=== PATIENT | male | born 1985 | race Caucasian/White ===

== ENCOUNTER 2020-06-25 13:12 | Emergency (ER) | payer OTHER, SELFPAY ==
--- NOTE | 2020-06-25 13:20 | XR_ITS ---
WS: [id number] Right femur and thigh, 4 views, 06/25/2020 Clinical Data: fb in knee Comparison: None. Findings: No fractures or dislocations are seen. The soft tissues are normal. The visualized knee shows no abno rmalities. The right hip is unremarkable. There is a small metal fragment in the anterior medial subcutaneous ti ssue adjacent to the patella. XR/XR femur RT min 2V* [id number] Impression: 1. Negative for fracture. 2. Small fragment in medial anterior subcutaneous tissue at the level of the ri ght patella.
--- NOTE | 2020-06-25 13:20 | XR_ITS ---
WS: [id number] Right knee, 3 views, 06/25/2020 Clinical Data: metal in knee Comparison: None. Findings: No fractures or dislocations are seen. The joint spaces are normal. The patella is intact. The soft t issues show no swelling.There is a metal fragment in the medial anterior subcutaneous tissue at the l evel of the right patella. XR/XR knee RT 3V* [id number] Impression: 1. Negative for fracture. 2. Small metal fragment in the anterior medial subcutaneous tissue at the level of the right patella.
[2020-06-25 13:31] VITALS: BP 117/78; PULSE 76; RESP 18; TEMP 36.8; O2SAT 99; BMI 25.8
[2020-06-25 13:37] VITALS: BP 117/78; PULSE 79; RESP 16; O2SAT 99
[2020-06-25] MEDS: tetanus-dipt-pertussis 0.5 mL SDV IM (14:12)
--- NOTE | 2020-06-25 14:16 | ED_ITS ---
HPI - Extremity Problem General: Chief complaint: Extremity Injury, Lower Stated complaint: POSSIBLE METAL IN R LEG Time Seen by Provider: 06/25/20 13:36 Source: patient Mode of arrival: ambulatory Limitations: no limitations History of Present Illness: HPI Narrative: 34-year-old male patient presents to the emergency department with foreign body to the right lower thigh. He r eports was working on a you joint when he had a piece of metal penetrating his right lower thigh. He is reporting knee pain upon exam. He reports a pricking sensation to the wound, reports last tetanus shot was years ago. MD Complaint: extremity pain Onset (ago): hour(s) (1-2) Pain Consistency: intermittent Location: right and lower extremity Radiation: none Relieving factors: nothing Associated symptoms: Reports no associated symptoms; Deny chest pain, fever(s) or rash Review of Systems General: Reports: 10 or more systems reviewed and unremarkable except in HPI and below Const: Denies: fever(s), chills or diaphoresis Eyes: Denies: blurry vision or eye redness ENMT: Denies: throat pain, dental pain or disequilibrium Card: Denies: chest pain, palpitations or irregular heart rhythm Resp: Denies: dyspnea, productive cough, non-productive cough or wheezing GI: Denies: abdominal pain, nausea or vomiting : Denies: dysuria Musc: Reports: joint pain; Denies: neck pain or back pain Skin/Breast: Reports: skin tenderness and skin swelling; Denies: rash or pruritus Neuro: Denies: headache(s), weakness in extremities or behavioral changes Jose/Lymph: Denies: easy bruising [facility] ED PFSH: Medical History (Updated 06/25/20 @ 15:41 by Monique Pulliam [facility]) Healthy adult Physical Exam Const: COMMON NORMALS: no acute distress, patient oriented x3, healthy appearing and alert GENERAL APPEARANCE: cooperative, comfortable and well hydrated HENMT: COMMON NORMALS: normocephalic, Normal external nose present and moist oral mucous membranes HEAD & SCALP: normocephalic NOSE: Normal external nose present Eye: COMMON NORMALS: Equal, round and reactive pupils present and EOMs intact bilaterally GENERAL EYE: appearance normal, both eyes and all related structures PUPIL: Yes Equal, round and reactive pupils present Neck/C-Spine: COMMON NORMALS: full ROM and no lymphadenopathy GENERAL: Yes normal visual inspection and Yes trachea midline CERVICAL SPINE: Yes cervical ROM normal Lymph: LYMPHATIC: no lymphadenopathy noted Chest: COMMONS NORMALS: normal inspection of the chest Resp: COMMON NORMALS: normal respiratory effort and clear to auscultation bilaterally AUSCULTATION: clear to auscultation bilaterally Cardio: COMMON NORMALS: regular rhythm, S1 normal heart sound present and S2 normal heart sound present RHYTHM: regular rhythm HEART SOUNDS: S1 normal heart sound present and S2 normal heart sound present GI: COMMON NORMALS: Soft to palpation and non-tender INSPECTION: Yes normal to inspection PALPATION: Yes Soft to palpation : COMMON NORMALS: Yes no CVA tenderness BLADDER/KIDNEY EXAM: Yes no CVA tenderness Back/Pelvis: COMMON NORMALS: no CVA tenderness and thoracic and lumbar spine normal to inspection Extremity: COMMON NORMALS: normal to inspection, full ROM, capillary refill normal, no clubbing, cyanosis or edema and no pedal edema GENERAL: Yes normal exam except as noted OTHER: normal rt knee exam Neuro: COMMON NORMALS: patient oriented x3 and no focal motor deficits SENSORIUM/ORIENTATION: Yes alert Psych: COMMON NORMALS: mental status grossly normal, Normal thought process present and cooperative ACTIVITY/MOTOR BEHAVIOR: Yes appropriate eye contact THOUGHT PROCESS: Normal thought process present Skin: COMMON NORMALS: no rashes or lesions noted, turgor normal, no petechiae and no mottling GENERAL SKIN EXAM: no rashes or lesions noted, elasticity normal and turgor normal TRAUMA: puncture (rt medial lower thigh) Procedures Foreign Body Removal Time Out Performed: yes Site: right and lower extremity Description of foreign body: other (metal fragment) Technique: manual removal, removal with forceps and incision made to facilitate removal Confirmed by:: palpation Complications: none Post-procedure exam: awake, alert, normal BP, normal HR and normal O2 sat Neurovascular: normal distal pulse, normal capillary fill, distal light touch sensation intact, no change from pre-procedure and other (FB retrieval not succe ssful, 3 sutures with 2-0 silk placed patient will be referred to surgical services for retrieval of foreign body) Course Vital Signs: Vital signs: Vital Signs Temperature 98.2 F 06/25/20 13:31 Pulse Rate 66 06/25/20 15:53 Respiratory Rate 16 06/25/20 15:53 Blood Pressure 109/68 06/25/20 15:53 Pulse Oximetry 97 06/25/20 15:53 MDM - Extremity (Nontraumatic) MDM Narrative: Medical decision making narrative: 34-year-old male presents to the emergency department with foreign body to the right lower thigh. Three-view x-ray revealed small metal fragment in the anterior medial subcu tissue at the level of the right patella. Incision to open puncture wound site for attempted retrieval of the foreign body, procedure was unsuccessful. Patient was referred to surgical services for foreign body retrieval. Patient was also advised not to use the affected extremity until follow-up with [facility] on Monday. financial services associate consult to assist with surgical follow-up. Placed on Keflex for prophylactic antibiotic therapy. Imaging Data^: Xray Ortho: Radiologist's impression: [employer] [address] [place] [id number] XRay Report Signed Patient: Benito Reyes Unit #: [id number] : 1985 Age/Sex: 34 / M ADM Date: 06/25/20 Loc: ER Room/Bed: Attending Dr: Ordering Provider/Ordering MD: Monique Pulliam Date of Service: 06/25/20 Procedure(s): XR knee RT 3V* [id number] Accession Number(s): [id number] Report Number: [id number] WS: [id number] Right knee, 3 views, 06/25/2020 Clinical Data: metal in knee Comparison: None. Findings: No fractures or dislocations are seen. The joint spaces are normal. The patella is intact. The soft tissues show no swelling.There is a metal fragment in the medial anterior subcutaneous tissue at the level of the right patella. XR/XR knee RT 3V* [id number] Impression: 1. Negative for fracture. 2. Small metal fragment in the anterior medial subcutaneous tissue at the level of the right patella. Dictated By: Dee Jovel MD Signed By: Dee Jovel MD Signed Date/Time: 06/25/201415 DD/ 14 Discharge Plan Discharge Patient Disposition: Home Clinical Impression: Acute foreign body of right thigh Qualifiers: Encounter type: initial encounter Qualified Code(s): S70.351A - Superficial foreign body, right thigh, initial encounter Condition: Stable Prescriptions: New cephalexin 500 mg capsule 500 mg PO Q6H 7 Days Qty: 28 RF: 0 Discharge Orders: Discharge ED (Routine); Ordered 06/25/20 Ordered By: Monique Pulliam Discharge Diet: Usual diet Discharge Activity: Limit activity as instructed Patient Instructions: Diphtheria/Acellular Pertussis/Tetanus Booster Vaccine (Tdap) (Injection), Suture Care (ED), Soft Tissue Foreign Body (ED), Opioid Safety Activity Restrictions/Additional Instructions: Referral has been placed to surgical services for foreign body removal Take Keflex until all gone, even if feeling better Do not submerge sutures in wet bathing water or contaminated water such as river water or draper water May take shower cleanse with soap and pat dry Return to the emergency department if you develop worsening pain or fever chills with redness and swelling of the right leg Follow-up with [employer] on Monday for release of duty for employment Coding Level of Care Code ED Culinary Artist for Anna Fwd Exam Comprehensive
--- NOTE | 2020-06-25 14:44 | PC.NURSE ---
Monique at pt side to remove FB from thigh.
[2020-06-25 15:53] VITALS: BP 109/68; PULSE 66; RESP 16; O2SAT 97
--- NOTE | 2020-06-26 07:41 | DCPLANNER ---
chemistry account manager had message to schedule a follow up appointment for patient with general surgery. chemistry account manager emailed patients information to Azalia at [facility] General Surgery. Patients information will be printed and reviewed. Clinic will call patient with appointment information.
--- NOTE | 2020-06-30 07:46 | DCPLANNER ---
Patient has a follow up appointment scheduled for Monday, July 06, 2020 at 11:[address] Moura at [facility] General Surgery. Clinic will call patient with appointment information.
--- NOTE | 2020-07-31 11:38 | DCPLANNER ---
Patient had a follow up appointment scheduled for 07.06.20 with general surgery - appointment was cancelled.
== END 2020-06-25 15:56 | disposition home or self-care (01) ==
PROVIDERS: Emergency Provider Nurse Practitioner Family
DX: S71.141A Puncture wound with foreign body, right thigh, initial encounter (principal); W26.9XXA Contact with unspecified sharp object(s), initial encounter; Z23 Encounter for immunization
CPT/HCPCS: 10120; 73552; 73562; 90471; 90715; 99283

== ENCOUNTER → 2021-02-24 11:00 | Outpatient (BNVA) | payer OTHER, SELFPAY | PROVIDERS: Visit Provider Emergency Medicine | DX: Z20.822 Contact with and (suspected) exposure to COVID-19 (principal) | CPT/HCPCS: 87635 ==